=== PATIENT | male | born 1960 | race American Indian/Alaskan Native ===

== ENCOUNTER 2017-12-22 01:51 | Emergency (ER) | payer MEDICARE ==
[2017-12-22 02:34] LABS: Basophils # (Auto) 0.1 K/mm3 (0.0-0.1); Eosinophils % (Auto) 1.1 % (0.0-4.3); Hematocrit 32.5 % (35.5-45.6); Hemoglobin 10.4 gm/dl (11.8-15.2); Lymphocytes # (Auto) 1.4 K/mm3 (1.2-5.4); Mean Corpuscular HGB Conc 32 % (32-34); Mean Corpuscular Volume 74 fl (84-94); Monocytes # (Auto) 0.7 K/mm3 (0.0-0.8); Monocytes % (Auto) 15.9 % (0.0-7.3); Platelet Count 205 K/mm3 (140-440); Red Blood Count 4.42 M/mm3 (3.65-5.03); Red Cell Distribution Width 13.7 % (13.2-15.2)
[2017-12-22 02:35] LABS: Mean Corpuscular Hemoglobin 23 pg (28-32)
[2017-12-22 02:48] LABS: BUN/Creatinine Ratio 21; Blood Urea Nitrogen 19 mg/dL (9-20); Calcium 9.5 mg/dL (8.4-10.2); Hemolysis Index 0
--- NOTE | 2017-12-22 02:59 | Cat Scan Report ---
FINAL REPORT EXAM: CT HEAD/BRAIN WO CON HISTORY: head injury TECHNIQUE: Routine axial imaging was obtained of the brain without IV contrast. FINDINGS: The ventricular system is appropriate in size and is symmetric. There is no evidence of acute stroke or hemorrhage. There are no extra-axial fluid collections. The visualized sinuses are clear. The mastoid air cells are well pneumatized. The calvarium appears intact. IMPRESSION: No acute intracranial process.
[2017-12-22] MEDS ORDERED: ATIVAN IM ONE (04:09)
[2017-12-22] MEDS ORDERED: GEODON IM ONE ×2 (04:09→04:14)
[2017-12-22] MEDS ORDERED: ATIVAN ONE (04:14)
[2017-12-22] MEDS ORDERED: WATER FOR INJ (PF) ONE (04:14)
[2017-12-22 04:25] LABS: Bacteria,Urine 3+ /HPF (Negative); Bilirubin,Urine NEG (Negative); Blood,Urine SM (Negative); Color,Urine Yellow (Yellow); Mucus,Urine FEW /HPF
[2017-12-22 05:41] LABS: Amphetamine Screen,Urine PRESUMPTIVE NEGATIVE; Benzodiazepines Screen,Urine PRESUMPTIVE NEGATIVE; Cannabinoid Screen,Urine PRESUMPTIVE NEGATIVE; Cocaine Screen,Urine PRESUMPTIVE NEGATIVE; Methadone Screen,Urine PRESUMPTIVE NEGATIVE; Opiate Screen,Urine PRESUMPTIVE NEGATIVE
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
[2017-12-22] MEDS: LEVAQUIN PO ONE ×2 (09:24→09:32)
--- NOTE | 2017-12-22 14:17 | Consultation ---
History of Present Illness - Reason for Consult Consult date: 12/22/17 Reason for consult: Mental Health Evaluation Requesting physician: JINA CRAWFORD - Chief Complaint Chief complaint: "I'm here" - History of Present Psychiatric Illness 57-year-old AA male brought into ER by the police. The patient was found wandering. Today the patient is calm, but disorganized during the assessment. He didn't answer questions logically. He could not elaborate why he was wandering per the police when asked. He did state that he took medications in the past for bipolar do. He denies SI/HI's, but would not confirm or deny AVH' s. This patient is a poor historian at this time. Medications and Allergies Allergies Allergy/AdvReac Type Severity Reaction Status Date / Time No Known Allergies Allergy Verified 09/03/14 16:16 Home Medications Medication Instructions Recorded Confirmed Last Taken Type Insulin Lispro [HumaLOG VIAL] 40 units SQ BID 08/29/14 09/16/14 09/15/14 08:00 History Losartan [Cozaar] 5 mg PO QDAY 08/29/14 09/16/14 09/16/14 06:30 History Metformin HCl [Glucophage] 1,000 mg PO BID 08/29/14 09/16/14 09/15/14 12:00 History amLODIPine [Norvasc] 5 mg PO DAILY 08/29/14 09/16/14 09/16/14 06:30 History glipiZIDE [glipiZIDE ER] 5 mg PO QAM 08/29/14 09/16/14 09/15/14 08:00 History HYDROcodone/APAP 5-325 [[place] 1 - 2 each PO Q4HR PRN #30 tablet 09/21/14 Unknown Rx 5/325] HYDROcodone/APAP 5-325 [[place] 1 - 2 each PO Q4HR PRN #30 tablet 09/21/14 Unknown Rx 5/325] Past psychiatric history - Past Medical History Past Surgical History: No surgical history - past Psychiatric treatment and history psychiatric treatment history: The patient stated that he has BPD. He could not confirm or deny a fam psy hx. - Social History Social history: other (Unable to obtain) Mental Status Exam - Vital signs Last Vital Signs Temp 97.3 F L 12/22/17 10:16 Pulse 56 L 12/22/17 10:16 Resp 20 12/22/17 10:16 BP 100/49 12/22/17 10:16 Pulse Ox 99 12/22/17 10:16 - Exam Narrative exam: MSE: Appearance: cooperative Behavior: poor eye contact Speech: regular rate and tone Mood: "okay" Affect: flat Thought Process: disorganized Thought Content: no gestures SI/HI's, he could not confirm or deny AVH's Motor Activity: ambulatory Cognition: A/O x 3 Insight: poor Judgment: poor Results Result Diagrams: 12/22/17 02:10 12/22/17 02:10 Abnormal lab results 12/22/17 12/22/17 12/22/17 Range/Units 02:10 02:10 02:10 WBC (4.5-11.0) K/mm3 Hgb (11.8-15.2) gm/dl Hct (35.5-45.6) % MCV (84-94) fl MCH (28-32) pg [place] % (Auto) (0.0-7.3) % Baso % (Auto) (0.0-1.8) % Sodium 136 L (137-145) mmol/L Chloride 94.6 L (98-107) mmol/L Glucose 103 H (75-100) mg/dL Urine WBC (Auto) (0.0-6.0) /HPF Salicylates < 0.3 L (2.8-20.0) mg/dL Acetaminophen < 5.0 L (10.0-30.0) ug/mL 12/22/17 12/22/17 Range/Units 02:10 03:50 WBC 4.3 L (4.5-11.0) K/mm3 Hgb 10.4 L (11.8-15.2) gm/dl Hct 32.5 L (35.5-45.6) % MCV 74 L (84-94) fl MCH 23 L (28-32) pg [place] % (Auto) 15.9 H (0.0-7.3) % Baso % (Auto) 3.0 H (0.0-1.8) % Sodium (137-145) mmol/L Chloride (98-107) mmol/L Glucose (75-100) mg/dL Urine WBC (Auto) 99.0 H (0.0-6.0) /HPF Salicylates (2.8-20.0) mg/dL Acetaminophen (10.0-30.0) ug/mL All other labs normal. Assessment and Plan Assessment and plan: Impression: Unspecified Psychosis. Today the patient is calm, but disorganized during the assessment. UDS is negative. DDx: R/O Bipolar Do with psychosis, R/O Schizophrenia Recommendation/Plan: Continue 1013 with placement to [facility] today.
[2017-12-22 16:44] VITALS: BP 127/77
== END 2017-12-22 16:30 ==
LOC: ED 01:51
DX: R44.0 Auditory hallucinations (principal); N39.0 Urinary tract infection, site not specified; I10 Essential (primary) hypertension; E11.9 Type 2 diabetes mellitus without complications; M19.90 Unspecified osteoarthritis, unspecified site; F17.200 Nicotine dependence, unspecified, uncomplicated; F12.90 Cannabis use, unspecified, uncomplicated; Z79.899 Other long term (current) drug therapy
CPT/HCPCS: 36415; 70450; 80048; 80307; 81001; 85025; 96372; 99285; G0480; J2060; J3486; 80320

== ENCOUNTER 2018-01-11 11:11 | Emergency (ER) | payer MEDICARE ==
--- NOTE | 2018-01-11 12:07 | Emergency Department Report ---
ED General Adult HPI - General Chief complaint: Eye Problems Stated complaint: DIFFCULTY IN VISION Time Seen by Provider: 01/11/18 11:24 Source: patient, EMS Mode of arrival: Ambulatory Limitations: No Limitations - History of Present Illness Initial comments: 57-year-old male history of hypertension as well as glaucoma who presents stating he's been seen darkness in the front left side for the past 2 weeks. Patient states that he recently was released from [facility] where he was receiving his glaucoma drops and is not receiving on since he's been out of [facility]. Patient denies any complete loss of vision. Patient denies any eye pain patient states he feels as if the pressure is increasing behind his eyes. Patient denies any weakness on one side of his body compared to the other and denies any slurred speech. Denies any trauma to his hand region. Severity scale (0 -10): 0 - Related Data Home Medications Medication Instructions Recorded Confirmed Last Taken Insulin Lispro [HumaLOG VIAL] 40 units SQ BID 08/29/14 09/16/14 09/15/14 08:00 Losartan [Cozaar] 5 mg PO QDAY 08/29/14 09/16/14 09/16/14 06:30 Metformin HCl [Glucophage] 1,000 mg PO BID 08/29/14 09/16/14 09/15/14 12:00 amLODIPine [Norvasc] 5 mg PO DAILY 08/29/14 09/16/14 09/16/14 06:30 glipiZIDE [glipiZIDE ER] 5 mg PO QAM 08/29/14 09/16/14 09/15/14 08:00 Previous Rx's Medication Instructions Recorded Last Taken Type HYDROcodone/APAP 5-325 [[place] 1 - 2 each PO Q4HR PRN #30 tablet 09/21/14 Unknown Rx 5/325] HYDROcodone/APAP 5-325 [[place] 1 - 2 each PO Q4HR PRN #30 tablet 09/21/14 Unknown Rx 5/325] Allergies Allergy/AdvReac Type Severity Reaction Status Date / Time No Known Allergies Allergy Verified 09/03/14 16:16 ED Review of Systems ROS: Stated complaint: DIFFCULTY IN VISION Other details as noted in HPI Constitutional: denies: chills, fever Eyes: vision change. denies: eye pain, eye discharge ENT: denies: ear pain, throat pain Respiratory: denies: cough, shortness of breath, wheezing Cardiovascular: denies: chest pain, palpitations Endocrine: no symptoms reported Gastrointestinal: denies: abdominal pain, nausea, diarrhea Genitourinary: denies: urgency, dysuria Musculoskeletal: denies: back pain, joint swelling, arthralgia Skin: denies: rash, lesions Neurological: denies: headache, weakness, paresthesias Psychiatric: denies: anxiety, depression Hematological/Lymphatic: denies: easy bleeding, easy bruising ED Past Medical Hx - Past Medical History Hx Hypertension: Yes Hx Diabetes: Yes (insulin dependent and takes po meds) Hx GERD: No Hx Renal Disease: No Hx Arthritis: Yes Hx Dementia: No Additional medical history: b/l glaucoma - Surgical History Past Surgical History?: Yes Additional Surgical History: hernia?, cataract sx left eye - Social History Smoking Status: Never Smoker Substance Use Type: None - Medications Home Medications: Home Medications Medication Instructions Recorded Confirmed Last Taken Type Insulin Lispro [HumaLOG VIAL] 40 units SQ BID 08/29/14 09/16/14 09/15/14 08:00 History Losartan [Cozaar] 5 mg PO QDAY 08/29/14 09/16/14 09/16/14 06:30 History Metformin HCl [Glucophage] 1,000 mg PO BID 08/29/14 09/16/14 09/15/14 12:00 History amLODIPine [Norvasc] 5 mg PO DAILY 08/29/14 09/16/14 09/16/14 06:30 History glipiZIDE [glipiZIDE ER] 5 mg PO QAM 08/29/14 09/16/14 09/15/14 08:00 History HYDROcodone/APAP 5-325 [[place] 1 - 2 each PO Q4HR PRN #30 tablet 09/21/14 Unknown Rx 5/325] HYDROcodone/APAP 5-325 [[place] 1 - 2 each PO Q4HR PRN #30 tablet 09/21/14 Unknown Rx 5/325] ED Physical Exam - General Limitations: No Limitations General appearance: alert, in no apparent distress - Head Head exam: Present: atraumatic, normocephalic - Eye Eye exam: Present: normal appearance, PERRL, EOMI, other (visual acuity left eye 20/50 and right eye 20/50 ( w/o glasses); IOP 12 mm HG in both eyes) - ENT ENT exam: Present: mucous membranes moist - Neck Neck exam: Present: normal inspection - Respiratory Respiratory exam: Present: normal lung sounds bilaterally. Absent: respiratory distress - Cardiovascular Cardiovascular Exam: Present: regular rate, normal rhythm. Absent: systolic murmur, diastolic murmur, rubs, gallop - GI/Abdominal GI/Abdominal exam: Present: soft, normal bowel sounds - Rectal Rectal exam: Present: deferred - exam: Present: other (large cyst present in the inguinal region without any evidence of exudate or erythema) - Extremities Exam Extremities exam: Present: normal inspection - Back Exam Back exam: Present: normal inspection - Neurological Exam Neurological exam: Present: alert, oriented X3 - Psychiatric Psychiatric exam: Present: normal affect, normal mood - Skin Skin exam: Present: warm, dry, intact, normal color. Absent: rash ED Course Vital Signs 01/11/18 11:29 Temperature 97.9 F Pulse Rate 70 Respiratory 14 Rate Blood Pressure 116/68 Blood Pressure 116/68 [Left] O2 Sat by Pulse 100 Oximetry ED Medical Decision Making - Medical Decision Making Patient has a visual acuity of 20/50 without glasses in the bilateral eyes and his intraocular pressures are both normal. Patient to be referred as an outpatient to follow-up with ophthalmology - Differential Diagnosis Acute Angle Closure Glaucoma; Diabetic Retinopathy; Critical care attestation.: If time is entered above; I have spent that time in minutes in the direct care of this critically ill patient, excluding procedure time. ED Disposition Clinical Impression: Vision changes, Glaucoma Disposition: DC-01 TO HOME OR SELFCARE Is pt being admited?: No Condition: Stable Instructions: Understanding Your Vision (ED), Blurred Vision (ED) Referrals: PRIMARY CARE, [Primary Care Provider] - 3-5 Days Print Language: CITIZEN OF [place]
[2018-01-11] MEDS ORDERED: PONTOCAINE IJ ONE (12:40)
[2018-01-11 14:37] VITALS: BP 129/65
== END 2018-01-11 14:40 | disposition home or self-care (01) ==
LOC: ED 11:11
DX: H40.9 Unspecified glaucoma (principal); I10 Essential (primary) hypertension; E11.9 Type 2 diabetes mellitus without complications; M19.90 Unspecified osteoarthritis, unspecified site; Z79.4 Long term (current) use of insulin
CPT/HCPCS: 99283

== ENCOUNTER 2018-01-11 15:24 | Emergency (ER) | payer MEDICARE ==
[2018-01-11 15:43] VITALS: BP 118/60
--- NOTE | 2018-01-11 16:22 | Emergency Department Report ---
ED Chest Pain HPI - General Chief Complaint: Chest Pain Stated Complaint: CHEST PAIN Time Seen by Provider: 01/11/18 16:06 Source: patient Mode of arrival: Wheelchair Limitations: No Limitations - History of Present Illness Initial Comments: 53-year-old male reports chest pain. She unable to characterize the pain. A physical located in the midsternal area. Denies shortness of breath, nausea, vomiting. Patient was seen in this ER earlier today for vision problems. Patient reports history of glaucoma. States he was just discharged from [place] where they were giving him eyedrops for his glaucoma. Patient states he is unable to see in the bright sunlight or at night, but is able to see while indoors. MD Complaint: chest pain -: This afternoon Onset: during rest Pain Location: substernal Pain Radiation: none Severity: mild Quality: other (unable to characterize) Improves With: nothing Worsens With: nothing re: denies: nausea, vomting, dyspnea Other Symptoms: denies: cough, fever - Related Data Home Medications Medication Instructions Recorded Confirmed Last Taken Insulin Lispro [HumaLOG VIAL] 40 units SQ BID 08/29/14 09/16/14 09/15/14 08:00 Losartan [Cozaar] 5 mg PO QDAY 08/29/14 09/16/14 09/16/14 06:30 Metformin HCl [Glucophage] 1,000 mg PO BID 08/29/14 09/16/14 09/15/14 12:00 amLODIPine [Norvasc] 5 mg PO DAILY 08/29/14 09/16/14 09/16/14 06:30 glipiZIDE [glipiZIDE ER] 5 mg PO QAM 08/29/14 09/16/14 09/15/14 08:00 Previous Rx's Medication Instructions Recorded Last Taken Type HYDROcodone/APAP 5-325 [[place] 1 - 2 each PO Q4HR PRN #30 tablet 09/21/14 Unknown Rx 5/325] HYDROcodone/APAP 5-325 [[place] 1 - 2 each PO Q4HR PRN #30 tablet 09/21/14 Unknown Rx 5/325] Allergies Allergy/AdvReac Type Severity Reaction Status Date / Time No Known Allergies Allergy Verified 09/03/14 16:16 Heart Score - HEART Score History: Slightly suspicious EKG: Normal Age: 45-65 Risk factors: 1-2 risk factors Troponin: < normal limit HEART Score: 2 ED Review of Systems ROS: Stated complaint: CHEST PAIN Other details as noted in HPI Comment: All other systems reviewed and negative Respiratory: denies: shortness of breath Cardiovascular: chest pain Gastrointestinal: denies: nausea, vomiting ED Past Medical Hx - Past Medical History Hx Hypertension: Yes Hx Diabetes: Yes (insulin dependent and takes po meds) Hx GERD: No Hx Renal Disease: No Hx Arthritis: Yes Hx Dementia: No Additional medical history: b/l glaucoma - Surgical History Additional Surgical History: hernia?, cataract sx left eye - Social History Smoking Status: Current Every Day Smoker Substance Use Type: None - Medications Home Medications: Home Medications Medication Instructions Recorded Confirmed Last Taken Type Insulin Lispro [HumaLOG VIAL] 40 units SQ BID 08/29/14 09/16/14 09/15/14 08:00 History Losartan [Cozaar] 5 mg PO QDAY 08/29/14 09/16/14 09/16/14 06:30 History Metformin HCl [Glucophage] 1,000 mg PO BID 08/29/14 09/16/14 09/15/14 12:00 History amLODIPine [Norvasc] 5 mg PO DAILY 08/29/14 09/16/14 09/16/14 06:30 History glipiZIDE [glipiZIDE ER] 5 mg PO QAM 08/29/14 09/16/14 09/15/14 08:00 History HYDROcodone/APAP 5-325 [[place] 1 - 2 each PO Q4HR PRN #30 tablet 09/21/14 Unknown Rx 5/325] HYDROcodone/APAP 5-325 [[place] 1 - 2 each PO Q4HR PRN #30 tablet 09/21/14 Unknown Rx 5/325] ED Physical Exam - General Limitations: No Limitations General appearance: alert, in no apparent distress - Head Head exam: Present: atraumatic, normocephalic - ENT ENT exam: Present: mucous membranes moist - Neck Neck exam: Present: normal inspection - Respiratory Respiratory exam: Present: normal lung sounds bilaterally. Absent: respiratory distress - Cardiovascular Cardiovascular Exam: Present: regular rate, normal rhythm - GI/Abdominal GI/Abdominal exam: Present: soft. Absent: tenderness - Extremities Exam Extremities exam: Present: full ROM - Neurological Exam Neurological exam: Present: alert, oriented X3 - Psychiatric Psychiatric exam: Present: normal affect, normal mood - Skin Skin exam: Present: warm, dry, intact, normal color ED Course Vital Signs 01/11/18 15:40 Temperature 98.5 F Pulse Rate 75 Respiratory 16 Rate Blood Pressure 118/60 O2 Sat by Pulse 99 Oximetry PEDRO score - Pedro Score Age > 65: (0) No Aspirin use within the Past 7 Days: (0) No 3 or more CAD Risk Factors: (1) Yes 2 or more Angina events in past 24 hrs: (0) No Known CAD with more than 50% Stenosis: (0) No Elevated Cardiac Markers: (0) No ST Deviation Greater than 0.5mm: (0) No PEDRO Score: 1 ED Medical Decision Making - Lab Data Result diagrams: 01/11/18 16:23 01/11/18 16:23 - EKG Data -: EKG Interpreted by Ok EKG shows normal: sinus rhythm, axis, intervals, QRS complexes, ST-T waves Rate: normal - EKG Data Interpretation: no acute changes - Medical Decision Making 57-year-old male with chest pain. EKG are unremarkable. Pt in no acute distress. Vital signs normal. Patient decided to leave AMA because he states he wants to lay down in a bed. - Differential Diagnosis malingering, ACS, pneumonia Critical care attestation.: If time is entered above; I have spent that time in minutes in the direct care of this critically ill patient, excluding procedure time. ED Disposition Clinical Impression: Chest pain Disposition: DC-07 LEFT AGAINST MED ADVICE Is pt being admited?: No Condition: Stable Instructions: Chest Pain (ED) Forms: AMA Form Time of Disposition: 16:24
[2018-01-11 16:37] LABS: Eosinophils # (Auto) 0.1 K/mm3 (0.0-0.4); Eosinophils % (Auto) 2.8 % (0.0-4.3); Hematocrit 33.4 % (35.5-45.6); Hemoglobin 10.9 gm/dl (11.8-15.2); Lymphocytes % (Auto) 43.5 % (13.4-35.0); Mean Corpuscular HGB Conc 33 % (32-34); Mean Corpuscular Volume 72 fl (84-94); Monocytes # (Auto) 0.6 K/mm3 (0.0-0.8); Monocytes % (Auto) 13.1 % (0.0-7.3); Platelet Count 294 K/mm3 (140-440); Red Blood Count 4.64 M/mm3 (3.65-5.03); Red Cell Distribution Width 14.1 % (13.2-15.2)
[2018-01-11 16:39] LABS: Mean Corpuscular Hemoglobin 24 pg (28-32)
[2018-01-11 17:06] LABS: BUN/Creatinine Ratio 26; Blood Urea Nitrogen 13 mg/dL (9-20); Calcium 8.8 mg/dL (8.4-10.2); Hemolysis Index 6
--- NOTE | 2018-01-11 17:07 | XRay Report ---
FINAL REPORT EXAM: XR CHEST ROUTINE 2V HISTORY: chest pain TECHNIQUE: Frontal and lateral views of the chest Comparison: None FINDINGS: There is hyperinflation suggestive of COPD. There is no evidence of focal infiltrate, pneumothorax or pleural fluid collection. The cardiac silhouette appears to be normal size. The thoracic aorta is mildly tortuous. The bony structures are notable for degenerative change of the shoulder joints bilaterally and spondylitic change of the thoracic spine.. IMPRESSION: 1. Hyperinflation suggestive of COPD. 2. No evidence of an acute pulmonary process. 3. Degenerative change shoulder joints bilaterally and spondylitic change thoracic spine.
== END 2018-01-11 16:37 | disposition left against medical advice (07) ==
LOC: ED 15:24
DX: R07.89 Other chest pain (principal); I10 Essential (primary) hypertension; E11.9 Type 2 diabetes mellitus without complications; M19.90 Unspecified osteoarthritis, unspecified site; F17.200 Nicotine dependence, unspecified, uncomplicated; Z79.4 Long term (current) use of insulin
CPT/HCPCS: 36415; 71046; 80048; 84484; 85025; 93005; 93010; 99283

== ENCOUNTER 2018-03-31 08:00 | Emergency (ER) | payer MEDICARE ==
[2018-03-31 08:46] LABS: Basophils # (Auto) 0.1 K/mm3 (0.0-0.1); Basophils % (Auto) 1.6 % (0.0-1.8); Eosinophils # (Auto) 0.1 K/mm3 (0.0-0.4); Eosinophils % (Auto) 1.9 % (0.0-4.3); Hematocrit 38.4 % (35.5-45.6); Hemoglobin 12.5 gm/dl (11.8-15.2); Lymphocytes # (Auto) 2.2 K/mm3 (1.2-5.4); Lymphocytes % (Auto) 40.6 % (13.4-35.0); Mean Corpuscular HGB Conc 32 % (32-34); Monocytes # (Auto) 0.5 K/mm3 (0.0-0.8); Monocytes % (Auto) 9.8 % (0.0-7.3); Platelet Count 220 K/mm3 (140-440); Red Blood Count 5.68 M/mm3 (3.65-5.03); Red Cell Distribution Width 17.5 % (13.2-15.2)
[2018-03-31 08:51] LABS: Mean Corpuscular Volume 68 fl (84-94)
[2018-03-31 09:03] LABS: Amphetamine Screen,Urine PRESUMPTIVE NEGATIVE; Benzodiazepines Screen,Urine PRESUMPTIVE NEGATIVE; Cannabinoid Screen,Urine PRESUMPTIVE NEGATIVE; Cocaine Screen,Urine PRESUMPTIVE NEGATIVE; Methadone Screen,Urine PRESUMPTIVE NEGATIVE; Opiate Screen,Urine PRESUMPTIVE NEGATIVE
[2018-03-31 09:07] LABS: BUN/Creatinine Ratio 11; Blood Urea Nitrogen 8 mg/dL (9-20); Calcium 9.2 mg/dL (8.4-10.2); Hemolysis Index 5
[2018-03-31 09:17] LABS: Bacteria,Urine 2+ /HPF (Negative); Bilirubin,Urine NEG (Negative); Blood,Urine NEG (Negative); Color,Urine Amber (Yellow); Mucus,Urine FEW /HPF
[2018-03-31] MEDS ORDERED: HALDOL IM PRN (10:29)
[2018-03-31] MEDS ORDERED: ATIVAN IM PRN (10:29)
[2018-03-31] MEDS ORDERED: NON-FORMULARY (Metformin Hcl [Glucophage] 1,000 MG) PO SCH (10:30)
--- NOTE | 2018-03-31 10:31 | Emergency Department Report ---
ED Psych HPI - General Chief Complaint: Psych Stated Complaint: depression Time Seen by Provider: 03/31/18 10:16 Source: patient, RN notes reviewed, old records reviewed Mode of arrival: Ambulatory Limitations: No Limitations - History of Present Illness Initial Comments: This is a 57-year-old gentleman. The patient has a past medical history of bilateral cataracts, depression, diabetes, hypertension The patient presents to the ER today with a primary complaint of suicidality, depression and hopelessness. He does not have a plan, but indicates that he might hurt himself if he goes out onto the street. To me, he made no complaint of homicidality, but he did endorse homicidal ideation to the nursery triage the patient. He reports no access to guns or firearms, and no recent attempt at overdose. He complains of physical bilateral toe discomfort, present for months, not a new, worsening or different. He complains of no visual disturbances to this provider, and only endorses that he has bilateral cataracts, and is unable to get his cataracts taken care of as an outpatient. The patient's symptoms are constant, and he reports no relieving or aggravating factors. He reports his plantar foot and toe discomfort does not radiate anywhe re. MD Complaint: suicidal ideation, feels depressed, other Associated Psychiatric Symptoms: suicidal ideation, homicidal ideation History of same: Yes Quality: constant Improves With: none Worsens With: none Context: significant life stressor If Self Harm: admits thoughts of - Related Data Home Medications Medication Instructions Recorded Confirmed Last Taken Insulin Lispro [HumaLOG VIAL] 40 units SQ BID 08/29/14 03/31/18 09/15/14 08:00 Losartan [Cozaar] 25 mg PO QDAY 08/29/14 03/31/18 09/16/14 06:30 Metformin HCl [Glucophage] 1,000 mg PO BID 08/29/14 03/31/18 09/15/14 12:00 amLODIPine [Norvasc] 5 mg PO DAILY 08/29/14 03/31/18 09/16/14 06:30 glipiZIDE [glipiZIDE ER] 5 mg PO QAM 08/29/14 03/31/18 09/15/14 08:00 Previous Rx's Medication Instructions Recorded Last Taken Type HYDROcodone/APAP 5-325 [[place] 1 - 2 each PO Q4HR PRN #30 tablet 09/21/14 Unknown Rx 5/325] HYDROcodone/APAP 5-325 [[place] 1 - 2 each PO Q4HR PRN #30 tablet 09/21/14 Unknown Rx 5/325] Allergies Allergy/AdvReac Type Severity Reaction Status Date / Time No Known Allergies Allergy Verified 09/03/14 16:16 ED Review of Systems ROS: Stated complaint: depression Other details as noted in HPI Constitutional: malaise. denies: fever Eyes: denies: eye pain, eye discharge, vision change ENT: denies: congestion Respiratory: denies: cough Cardiovascular: denies: chest pain Genitourinary: denies: dysuria, frequency, hematuria, testicular pain Musculoskeletal: arthralgia, myalgia. denies: back pain Skin: denies: lesions Neurological: weakness Psychiatric: anxiety, depression, homicidal thoughts, suicidal thoughts. denies: auditory hallucinations, visual hallucinations ED Past Medical Hx - Past Medical History Previous Medical History?: Yes Hx Hypertension: Yes Hx Diabetes: Yes (insulin dependent and takes po meds) Hx GERD: No Hx Renal Disease: No Hx Arthritis: Yes Hx Dementia: No Additional medical history: b/l glaucoma , Cataracts - Surgical History Past Surgical History?: Yes Additional Surgical History: hernia? - Social History Smoking Status: Current Every Day Smoker Substance Use Type: Alcohol, Marijuana, Prescribed - Medications Home Medications: Home Medications Medication Instructions Recorded Confirmed Last Taken Type Insulin Lispro [HumaLOG VIAL] 40 units SQ BID 08/29/14 03/31/18 09/15/14 08:00 History Losartan [Cozaar] 25 mg PO QDAY 08/29/14 03/31/18 09/16/14 06:30 History Metformin HCl [Glucophage] 1,000 mg PO BID 08/29/14 03/31/18 09/15/14 12:00 History amLODIPine [Norvasc] 5 mg PO DAILY 08/29/14 03/31/18 09/16/14 06:30 History glipiZIDE [glipiZIDE ER] 5 mg PO QAM 08/29/14 03/31/18 09/15/14 08:00 History HYDROcodone/APAP 5-325 [[place] 1 - 2 each PO Q4HR PRN #30 tablet 09/21/14 Unknown Rx 5/325] HYDROcodone/APAP 5-325 [[place] 1 - 2 each PO Q4HR PRN #30 tablet 09/21/14 Unknown Rx 5/325] ED Physical Exam - General Limitations: No Limitations General appearance: alert, in no apparent distress - Head Head exam: Present: atraumatic, normocephalic - Eye Eye exam: Present: normal appearance, PERRL, EOMI, other (bilateral cataracts noted. Visual acuity intact to finger counting, color perception, reading at a close distance.). Absent: nystagmus - ENT ENT exam: Present: normal exam, normal orophraynx, mucous membranes moist, normal external ear exam - Neck Neck exam: Present: normal inspection, full ROM. Absent: tenderness, meningismus - Respiratory Respiratory exam: Present: normal lung sounds bilaterally. Absent: respiratory distress - Cardiovascular Cardiovascular Exam: Present: regular rate, normal rhythm, normal heart sounds. Absent: bradycardia, tachycardia, irregular rhythm, systolic murmur, diastolic murmur, rubs, gallop - GI/Abdominal GI/Abdominal exam: Present: soft. Absent: distended, guarding, rebound, rigid, pulsatile mass - Rectal Rectal exam: Present: deferred - Extremities Exam Extremities exam: Present: normal inspection (there is no plantar or foot redness, pus or streaking. Toes nontender. Chronic hyperpigmentation discoloration noted. No evidence of active cellulitis, redness, pus or streaking.), full ROM, pedal edema, other (2+ pulses noted in the bilateral upper, lower extremities. Compartments soft. No long bony tenderness. The pelvis is stable.). Absent: tenderness, joint swelling, calf tenderness - Back Exam Back exam: Present: normal inspection, full ROM. Absent: tenderness, CVA tenderness (R), paraspinal tenderness, vertebral tenderness - Neurological Exam Neurological exam: Present: alert, oriented X3, normal gait, other (Extraocular movements intact. Tongue midline. No facial droop. Facial sensation intact to light touch in the V1, V2, V3 distribution bilaterally. 5 and 5 strength in 4 extremities.. Sensation is intact to light touch in 4 extremities.). Absent: motor sensory deficit - Psychiatric Psychiatric exam: Present: depressed, suicidal ideation - Skin Skin exam: Present: warm, dry, intact, normal color. Absent: rash ED Course Vital Signs 03/31/18 08:17 Temperature 98.8 F Pulse Rate 89 Respiratory 16 Rate Blood Pressure 176/89 O2 Sat by Pulse 99 Oximetry ED Medical Decision Making - Lab Data Result diagrams: 03/31/18 08:33 03/31/18 08:33 Vital Signs 03/31/18 08:17 Temperature 98.8 F Pulse Rate 89 Respiratory 16 Rate Blood Pressure 176/89 O2 Sat by Pulse 99 Oximetry Lab Results 03/31/18 03/31/18 03/31/18 Range/Units 08:33 08:33 08:33 WBC (4.5-11.0) K/mm3 RBC (3.65-5.03) M/mm3 Hgb (11.8-15.2) gm/dl Hct (35.5-45.6) % MCV (84-94) fl MCH (28-32) pg MCHC (32-34) % RDW (13.2-15.2) % Plt Count (140-440) K/mm3 Lymph % (Auto) (13.4-35.0) % [place] % (Auto) (0.0-7.3) % Eos % (Auto) (0.0-4.3) % Baso % (Auto) (0.0-1.8) % Lymph # (1.2-5.4) K/mm3 [place] # (0.0-0.8) K/mm3 Eos # (0.0-0.4) K/mm3 Baso # (0.0-0.1) K/mm3 Seg Neutrophils % (40.0-70.0) % Seg Neutrophils # (1.8-7.7) K/mm3 Sodium 136 L (137-145) mmol/L Potassium 3.9 (3.6-5.0) mmol/L Chloride 94.5 L (98-107) mmol/L Carbon Dioxide 28 (22-30) mmol/L Anion Gap 17 mmol/L BUN 8 L (9-20) mg/dL Creatinine 0.7 L (0.8-1.5) mg/dL Estimated GFR > 60 ml/min BUN/Creatinine Ratio 11 % Glucose 144 H (75-100) mg/dL POC Glucose (70-105) Calcium 9.2 (8.4-10.2) mg/dL Urine Color (Yellow) Urine Turbidity (Clear) Urine pH (5.0-7.0) Ur Specific [place] (1.003-1.030) Urine Protein (Negative) mg/dL Urine Glucose (UA) (Negative) mg/dL Urine Ketones (Negative) mg/dL Urine Blood (Negative) Urine Nitrite (Negative) Urine Bilirubin (Negative) Urine Urobilinogen (<2.0) mg/dL Ur Leukocyte Esterase (Negative) Urine WBC (Auto) (0.0-6.0) /HPF Urine RBC (Auto) (0.0-6.0) /HPF U Epithel Cells (Auto) (0-13.0) /HPF Urine Bacteria (Auto) (Negative) /HPF Urine Mucus /HPF Urine Yeast (Budding) /HPF Salicylates < 0.3 L (2.8-20.0) mg/dL Urine Opiates Screen Urine Methadone Screen Acetaminophen < 5.0 L (10.0-30.0) ug/mL Ur Barbiturates Screen Ur Phencyclidine Scrn Ur Amphetamines Screen U Benzodiazepines Scrn Urine Cocaine Screen U Marijuana (THC) Screen Drugs of Abuse Note Plasma/Serum Alcohol (0-0.07) % 03/31/18 03/31/18 03/31/18 Range/Units 08:33 08:33 08:37 WBC 5.3 (4.5-11.0) K/mm3 RBC 5.68 H (3.65-5.03) M/mm3 Hgb 12.5 (11.8-15.2) gm/dl Hct 38.4 (35.5-45.6) % MCV 68 L (84-94) fl MCH 22 L (28-32) pg MCHC 32 (32-34) % RDW 17.5 H (13.2-15.2) % Plt Count 220 (140-440) K/mm3 Lymph % (Auto) 40.6 H (13.4-35.0) % [place] % (Auto) 9.8 H (0.0-7.3) % Eos % (Auto) 1.9 (0.0-4.3) % Baso % (Auto) 1.6 (0.0-1.8) % Lymph # 2.2 (1.2-5.4) K/mm3 [place] # 0.5 (0.0-0.8) K/mm3 Eos # 0.1 (0.0-0.4) K/mm3 Baso # 0.1 (0.0-0.1) K/mm3 Seg Neutrophils % 46.1 (40.0-70.0) % Seg Neutrophils # 2.4 (1.8-7.7) K/mm3 Sodium (137-145) mmol/L Potassium (3.6-5.0) mmol/L Chloride (98-107) mmol/L Carbon Dioxide (22-30) mmol/L Anion Gap mmol/L BUN (9-20) mg/dL Creatinine (0.8-1.5) mg/dL Estimated GFR ml/min BUN/Creatinine Ratio % Glucose (75-100) mg/dL POC Glucose (70-105) Calcium (8.4-10.2) mg/dL Urine Color Sandra (Yellow) Urine Turbidity Slightly-cloudy (Clear) Urine pH 6.0 (5.0-7.0) Ur Specific [place] 1.016 (1.003-1.030) Urine Protein 100 mg/dl (Negative) mg/dL Urine Glucose (UA) Neg (Negative) mg/dL Urine Ketones Neg (Negative) mg/dL Urine Blood Neg (Negative) Urine Nitrite Neg (Negative) Urine Bilirubin Neg (Negative) Urine Urobilinogen 2.0 (<2.0) mg/dL Ur Leukocyte Esterase Mod (Negative) Urine WBC (Auto) 41.0 H (0.0-6.0) /HPF Urine RBC (Auto) 6.0 (0.0-6.0) /HPF U Epithel Cells (Auto) < 1.0 (0-13.0) /HPF Urine Bacteria (Auto) 2+ (Negative) /HPF Urine Mucus Few /HPF Urine Yeast (Budding) 1+ /HPF Salicylates (2.8-20.0) mg/dL Urine Opiates Screen Urine Methadone Screen Acetaminophen (10.0-30.0) ug/mL Ur Barbiturates Screen Ur Phencyclidine Scrn Ur Amphetamines Screen U Benzodiazepines Scrn Urine Cocaine Screen U Marijuana (THC) Screen Drugs of Abuse Note Plasma/Serum Alcohol < 0.01 (0-0.07) % 03/31/18 03/31/18 Range/Units 08:42 10:48 WBC (4.5-11.0) K/mm3 RBC (3.65-5.03) M/mm3 Hgb (11.8-15.2) gm/dl Hct (35.5-45.6) % MCV (84-94) fl MCH (28-32) pg MCHC (32-34) % RDW (13.2-15.2) % Plt Count (140-440) K/mm3 Lymph % (Auto) (13.4-35.0) % [place] % (Auto) (0.0-7.3) % Eos % (Auto) (0.0-4.3) % Baso % (Auto) (0.0-1.8) % Lymph # (1.2-5.4) K/mm3 [place] # (0.0-0.8) K/mm3 Eos # (0.0-0.4) K/mm3 Baso # (0.0-0.1) K/mm3 Seg Neutrophils % (40.0-70.0) % Seg Neutrophils # (1.8-7.7) K/mm3 Sodium (137-145) mmol/L Potassium (3.6-5.0) mmol/L Chloride (98-107) mmol/L Carbon Dioxide (22-30) mmol/L Anion Gap mmol/L BUN (9-20) mg/dL Creatinine (0.8-1.5) mg/dL Estimated GFR ml/min BUN/Creatinine Ratio % Glucose (75-100) mg/dL POC Glucose 262 H (70-105) Calcium (8.4-10.2) mg/dL Urine Color (Yellow) Urine Turbidity (Clear) Urine pH (5.0-7.0) Ur Specific [place] (1.003-1.030) Urine Protein (Negative) mg/dL Urine Glucose (UA) (Negative) mg/dL Urine Ketones (Negative) mg/dL Urine Blood (Negative) Urine Nitrite (Negative) Urine Bilirubin (Negative) Urine Urobilinogen (<2.0) mg/dL Ur Leukocyte Esterase (Negative) Urine WBC (Auto) (0.0-6.0) /HPF Urine RBC (Auto) (0.0-6.0) /HPF U Epithel Cells (Auto) (0-13.0) /HPF Urine Bacteria (Auto) (Negative) /HPF Urine Mucus /HPF Urine Yeast (Budding) /HPF Salicylates (2.8-20.0) mg/dL Urine Opiates Screen Presumptive negative Urine Methadone Screen Presumptive negative Acetaminophen (10.0-30.0) ug/mL Ur Barbiturates Screen Presumptive negative Ur Phencyclidine Scrn Presumptive negative Ur Amphetamines Screen Presumptive negative U Benzodiazepines Scrn Presumptive negative Urine Cocaine Screen Presumptive negative U Marijuana (THC) Screen Presumptive negative Drugs of Abuse Note Disclamer Plasma/Serum Alcohol (0-0.07) % - Medical Decision Making Differential diagnosis, including but not limited to: Depression, suicidality, mood disorder, chronic foot pain, chronic cataracts, chronic medical conditions Assessment and plan: 57-year-old gentleman with a primary complaint of depression and suicidality, and incidental secondary complaint of foot and toe pain. Patient is afebrile with reassuring vital signs, and has a benign physical examination. His lower extremity examination is not consistent with cellulitis, fracture, compartment syndrome, or any other acute medical condition, and is medically suitable S able to follow up as an outpatient. Patient does not have an acute ocular decompensation, and he is medically suitable to follow up as an outpatient for his elective cataract repair. He has chronic medical conditions which do not appear to be acutely decompensated, his elevated blood pressure is reviewed and appreciated, this is a chronic medical condition, and as per the [employer] clinical policy on hypertension which is not acutely symptomatic or decompensated, does not require emergent intervention. We will continue the patient's current outpatient medications. He is placed on a 1013. Psychiatric consultation has been requested. Urinalysis reviewed and appreciated, patient not currently having symptoms at this time, therefore most likely asymptomatic bacteriuria, does not require initiation of antimicrobial therapy at this time. At this point in time, there does not appear to be in immediate medical contraindication to psychiatric admission, evaluation, consultation, a psychiatric consultation has been requested at this time for placement. Critical care attestation.: If time is entered above; I have spent that time in minutes in the direct care of this critically ill patient, excluding procedure time. ED Disposition Clinical Impression: Medical clearance for psychiatric admission Disposition: [id number] PSY HOSP/PSY UNIT Is pt being admited?: No Does the pt Need Aspirin: No Condition: Good Referrals: MARIA G BRUCE MD [Other] - 3-5 Days
[2018-03-31] MEDS ORDERED: COZAAR PO SCH ×2 (11:00→12:00)
[2018-03-31] MEDS ORDERED: GLUCOTROL XL PO SCH (11:00)
[2018-03-31] MEDS ORDERED: NORVASC PO SCH (11:00)
[2018-03-31] MEDS ORDERED: TYLENOL PO PRN (11:42)
[2018-03-31] MEDS ORDERED: IBUPROFEN PO PRN (11:42)
[2018-03-31] MEDS: HumaLOG SUB-Q SCH ×2 (12:15→17:51)
[2018-03-31] MEDS ORDERED: GLUCOPHAGE PO SCH ×2 (17:00)
[2018-03-31 18:22] VITALS: BP 164/76
== END 2018-03-31 20:15 ==
LOC: ED 08:00 → EEVIPCON 08:00 → ED 20:15
DX: F32.9 Major depressive disorder, single episode, unspecified (principal); F41.9 Anxiety disorder, unspecified; E11.9 Type 2 diabetes mellitus without complications; M19.90 Unspecified osteoarthritis, unspecified site; M79.673 Pain in unspecified foot; F17.200 Nicotine dependence, unspecified, uncomplicated; F12.10 Cannabis abuse, uncomplicated; Z79.899 Other long term (current) drug therapy; Z79.4 Long term (current) use of insulin
CPT/HCPCS: 36415; 80048; 80307; 81001; 82962; 85025; 99285; G0480; 80320; J1815